=== PATIENT | female | born 1985 | race Caucasian/White ===

== ENCOUNTER 2019-05-11 06:14 | Emergency (ER) | payer OTHER, SELFPAY ==
[2019-05-11 06:20] VITALS: BP 122/88; PULSE 77; RESP 18; TEMP 36.2; O2SAT 98; BMI 29.7
--- NOTE | 2019-05-11 06:30 | EKG12_ITS ---
Test Reason : GENERAL ILLNESS Blood Pressure : / mmHG Vent. Rate : 067 BPM Atrial Rate : 067 BPM P-R Int : 154 ms QRS Dur : 080 ms QT Int : 374 ms P-R-T Axes : 058 043 030 degrees QTc Int : 395 ms Normal sinus rhythm Normal ECG Confirmed by ELMER GALLAGHER, LE ([id number]), school photograph editor VIVIANE HANNON ([id number]) on 05/14/2019 2:24:11 PM Referred By: SHIVANI Confirmed By:YOSELIN PAYNE MD
--- NOTE | 2019-05-11 06:30 | CT_ITS ---
STUDY: CT BRAIN WITHOUT CONTRAST REASON FOR EXAM: Female, 33 years old. WEAKNESS, ''CANT SWALLOW'', DIZZY X 2 WKS RADIATION DOSAGE (If Supplied By Facility): CTDIvol = ( 44.99 ) mGy, DLP = ( 745.49 ) mGycm TECHNIQUE: Transaxial CT imaging of the brain was performed without administration of intravenous contrast material. Individualized dose optimization techniques were used for this CT. COMPARISON: No relevant priors. FINDINGS: Normal soft tissue structures. Normal calvarium. Normal size ventricles and extra-axial spaces for the patient''s age. Normal white matter tracts of the cerebral hemispheres. Normal basal ganglia and thalami. Normal brainstem. Normal cerebellum. There is no intracranial hemorrhage. There are no findings of an acute ischemic infarction. Normal visualized paranasal sinuses. CT/Brain/Head without Contrast IMPRESSION: Normal unenhanced CT scan of the brain. Electronically Signed: Janet Moncada, at 7:18 EDT Tel , Service support ,
[2019-05-11 06:38] LABS: Absolute Neutrophil Count 6.5 X10^3/uL (2.0-7.7); Basophil# 0.08 X10^3/uL; Basophil% 0.8 % (0-1); Eosinophil# 0.15 X10^3/uL; Eosinophils% 1.5 % (0-5); Hematocrit 40.6 % (37-47); Hemoglobin 13.8 g/dL (12.0-15.0); Lymphocyte % 22.4 % (19-41); Mean Corpuscular Hgb 29.4 pg (27.0-32.0); Mean Corpuscular Volume 86.4 fL (81-99); Mean Platelet Vol. 8.5 fl (6.2-12.0); Monocyte# 0.85 X10^3/uL; Monocyte% 8.7 % (0-10); NRBC Flagged by Analyzer 0 % (0-5); Neutrophil # 6.51 X10^3/uL (2.7-7.7); Neutrophil % 66.4 % (47-70); Platelet Count 273 K/mm3 (150-450); RBC Distribution Width CV 12.3 % (11.6-14.6); RBC Distribution Width SD 38.8 fl (35.1-43.9); White Blood Count 9.8 K/mm3 (4.4-11.0)
[2019-05-11] MEDS: 0.9% Normal Saline 1,000 ML 1000 ML IV (06:40)
--- NOTE | 2019-05-11 06:41 | ED.VIS.GEN ---
History of Present Illness Chief Complaint: General Illness Informant: Patient Onset: Weeks Context: Gradual Onset Timing: Intermittent Current Severity: Moderate Maximum Severity: Moderate Narrative: The patient is a 33-year-old female with history of GERD that presents to the emergency department with multiple complaints. The patient states that for the past month, she has had intermittent symptoms of near syncope, shortness of breath, and generalized fatigue. She states that she is also had diminished appetite and feels like her food is getting stuck. She states it only feels like it is getting stuck on the right side of her throat. She states for the past few days, she is felt like the left side of her body has been lazy. She has had intermittent headaches and lack of appetite. She states that she has had treatment for H. pylori in the past. She has seen her primary care and urgent care for the same. She states that she is scheduled for outpatient endoscopy, but the symptoms have not improved so she felt she needed to be evaluated. She denies any fevers, night sweats, or weight loss. She denies any family history of MS. She denies any trauma or visual change. Prior similar symptoms: Yes Recent Illness/Hospitalization: No Past Medical History - Allergies and Home Meds Allergies/Adverse Reactions: Allergies No Known Allergies Allergy (Verified 05/11/19 06:16) Primary Care Physician: Deven Echeverria [Primary Care Provider] - Prior records reviewed: Yes Past Medical History: - - GERD Surgical History: noncontributory Smoking Status: Never smoker Review of Systems General: Reports: Malaise. Denies: Chills, Fever, Sweats Eyes: Denies: Visual changes - bilaterally, Diplopia ENT: Denies: Rhinorrhea, Sore throat Cardiovascular: Denies: Chest pain, Palpitations Respiratory: Reports: Dyspnea. Denies: Cough, Dyspnea on exertion Gastrointestinal: Reports: Nausea. Denies: Abdominal pain, Vomiting, Diarrhea, Melena, Hematochezia Genitourinary: Denies: Dysuria, Hematuria, Frequency Musculoskeletal: Denies: Back pain, Extremity Pain Skin: Denies: Rash, Wounds Neurological: Reports: Parasthesia, Numbness. Denies: Headache, Weakness Physical Exam Vital Signs/Narrative: Vital Signs Temp Pulse Resp BP Pulse Ox 05/11/19 06:20 97.2 F L 77 18 122/88 H 98 Inital Vital Signs reviewed: Yes General: Well nourished, Well developed, No Acute Distress Head: Normocephalic, Atraumatic Eyes: Perrl, EOMI ENT: Moist mucous membranes, No rhinorrhea Neck: Supple, Nontender Cardiovascular: Regular rate, Regular rhythm, No murmurs Respiratory: No distress, CTA bilaterally, Chest nontender Abdomen: Soft, Nontender, Nondistended, Normal bowel sounds Back: Nontender, Normal Inspection Extremities: Nontender, No edema Skin: Normal color, No rash Neurological: Alert, Oriented x3, Cranial nerves II-XII grossly intact, Normal Strength, Normal Sensation Psychological: Normal affect, Normal Mood Diagnostic/Tx/Re-eval - Medical Decision Making The patient is well-appearing and has a nonfocal neurologic examination. Her NIH is 0. Her oropharynx is widely patent. She has had a longer chronicity to her symptoms. She is not hypotensive or tachycardic. The patient will undergo metabolic work-up including head CT. I do have less of a suspicion for dangerous process given the chronicity, but I do feel that certain things need to be ruled out. The patient will be signed out to oncoming physician for final disposition. Impression 1. Generalized weakness ED Disposition - Plan for ED Patient: Referrals: Deven Echeverria [Primary Care Provider] -
[2019-05-11 07:01] LABS: Mucous, Urine 0 SEEN /hpf (<or=2+)
--- NOTE | 2019-05-11 07:01 | ED.RN ---
NO OLD EKG
[2019-05-11 07:03] LABS: Color, Urine Yellow (Yellow); Glucose, Dipstick Normal (Normal); Ketone-Dipstick Negative (Negative); Leukocyte Esterase-Dipstick 25 /ul (Negative); Nitrite-Dipstick Negative (Negative); Occult Blood-Urine 25 /ul (Negative); Protein-Dipstick 30 mg/dl (Negative); Specific Gravity, Urine 1.025 (1.002-1.030); Urine Bilirubin Dipstick Negative (Negative); Urine Clarity Sl. Cloudy (Clear); Urine Urobilinogen Normal (Normal)
[2019-05-11 07:04] LABS: ALB/GLOB Ratio 1.2 RATIO (0.9-2.4); AST(SGOT) 14 U/L (15-37); Alanine Aminotransfer ALT/SGPT 21 U/L (13-56); Albumin, Serum 3.9 g/dL (3.2-5.0); Alkaline Phosphatase 49 U/L (45-117); Anion Gap 7 (5-15); BUN 8 mg/dL (7-18); BUN/Creat Ratio 9.8 RATIO (10-20); Calcium,Total 8.8 mg/dL (8.5-10.1); Chloride 105 mmol/L (98-107); Creatinine, Serum 0.81 mg/dL (0.55-1.02); EST Glomerular Filtration Rate 85 mL/min (>60); Est Glom Filt Rate - Afr Amer 103 mL/min (>60); Estimated Creatinine Clearance 76.67 ml/min; Globulin 3.2 g/dL (2.2-4.2); Glucose 101 mg/dL (74-106); Potassium 3.8 mmol/L (3.5-5.1); Protein, Total 7.1 g/dL (6.4-8.2); Sodium Level 139 mmol/L (136-145)
[2019-05-11 07:05] LABS: Internal QC Validated? YES +Cl - CLEAR BKGD; Pregnancy, Urine Negative Negative
[2019-05-11 07:12] LABS: Bacteria 1+ /hpf (None Seen); Red Blood Cells-Urine 0-5 SEEN /hpf (0-5); Squamous Epithelial Cells - UA 0-5 SEEN /hpf (5-10); White Blood Cells 0-5 SEEN /hpf (0-5)
[2019-05-11 07:56] VITALS: BP 114/77; PULSE 69; RESP 14; O2SAT 99
== END 2019-05-11 07:57 | disposition home or self-care (01) ==
PROVIDERS: Emergency Provider Emergency Medicine
DX: R53.1 Weakness (principal); K21.9 Gastro-esophageal reflux disease without esophagitis; R51 Headache; R11.0 Nausea
CPT/HCPCS: 70450; 80053; 81001; 81025; 83735; 84443; 85025; 93005; 96360; 99283; J7030; A4216

== ENCOUNTER → 2019-05-14 09:55 | Outpatient (CLI) | payer OTHER, SELFPAY ==
[2013-06-25 10:56] VITALS: BMI 29.6
--- NOTE | 2019-05-14 10:00 | RAD_ITS ---
STUDY: X-RAY - ESOPHAGUS (BARIUM SWALLOW) WITH FLUOROSCOPY REASON FOR EXAM: Female, 33 years old. DYSPHAGIA WITH FOOD X 2WEEKS, SOME REFLUX TECHNIQUE: 17 view(s) of the esophagus were obtained following swallowing of barium. FLUOROSCOPY TIME (if supplied): (0:25) minutes/seconds COMPARISON: None. FINDINGS: There is no demonstrated esophageal foreign body. There is no demonstrated stricture or mucosal abnormality. Normal gastroesophageal junction, without a demonstrated hiatal hernia. Normal visualized aortic arch and descending thoracic aorta. Normal visualized pulmonary parenchyma. Normal visualized osseous structures of the thorax. RAD/Esophagus Single Contrast IMPRESSION: Normal plain film x-ray examination (barium swallow) of the esophagus. Electronically Signed: James Moran, at 10:51 EDT , Service support ,
== END ==
PROVIDERS: PCP Family Medicine; Referring Provider Nurse Practitioner Family; Visit Provider Nurse Practitioner Family
DX: R13.12 Dysphagia, oropharyngeal phase (principal)
CPT/HCPCS: 74220

== ENCOUNTER → 2019-07-05 15:22 | Outpatient (CLI) | payer OTHER, SELFPAY ==
--- NOTE | 2019-07-05 15:29 | MRI_ITS ---
STUDY: MRI CERVICAL SPINE WITH AND WITHOUT CONTRAST REASON FOR EXAM: Female, 33 years old. 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 COMPARISON: None FINDINGS: Normal foramen magnum and brainstem-cervical cord junction. Normal cervical lordosis. Normal vertebral bodies and posterior osseous elements. C2-3: Normal endplates. Normal disc height, signal and morphology. Normal central canal and intervertebral neural foramina. C3-4: Normal endplates. Normal disc height, signal and morphology. Normal central canal and intervertebral neural foramina. C4-5: Normal endplates. Normal disc height, signal and morphology. Normal central canal and intervertebral neural foramina. C5-6: Normal endplates. Normal disc height, signal and morphology. Normal central canal and intervertebral neural foramina. C6-7: There is mild disc space narrowing and endplate spondylosis. There is no significant disc herniation, central canal or foraminal stenosis. C7-T1: Normal endplates. Normal disc height, signal and morphology. Normal central canal and intervertebral neural foramina. Normal cervical cord. Normal visualized soft tissue structures. MRI/Spine Cervical W/WO Contrast IMPRESSION: No evidence of demyelinating disease Electronically Signed: Luisito Lopes MD at 15:22 EDT Tel , Service support ,
== END ==
PROVIDERS: PCP Family Medicine; Referring Provider Psychiatry & Neurology Neurology; Visit Provider Psychiatry & Neurology Neurology
DX: G37.9 Demyelinating disease of central nervous system, unspecified (principal)
CPT/HCPCS: 72156; A9575

== ENCOUNTER 2020-08-02 12:14 | Emergency (ER) | payer OTHER, SELFPAY ==
[2020-08-02 12:15] VITALS: BP 114/69; PULSE 81; RESP 18; TEMP 36.8; O2SAT 100; BMI 29.2
--- NOTE | 2020-08-02 12:40 | EKG12_ITS ---
Test Reason : CP Blood Pressure : / mmHG Vent. Rate : 073 BPM Atrial Rate : 073 BPM P-R Int : 154 ms QRS Dur : 082 ms QT Int : 374 ms P-R-T Axes : 052 035 030 degrees QTc Int : 412 ms Normal sinus rhythm with sinus arrhythmia Normal ECG Confirmed by ARTHUR GALLAGHER, COLTON ([id number]), fan mail editor LEN KELLEY ([id number]) on 08/04/2020 9:02:16 AM Referred By: Confirmed By:COLTON GIBSON MD
--- NOTE | 2020-08-02 12:43 | ED.VIS.CHEST ---
HPI History of Present Illness Chief Complaint: Chest Pain Detail of Chief Complaint: Chest pain that started yesterday Informant: patient Onset/Context/Timing Current Severity: 0/10 Narrative Narrative: Patient presents to the emergency department with complaint of chest discomfort. Patient states that last week she had an episode where on her watch it was noted that her heart rate was in the 150s and at times going up to 210. Patient was asymptomatic when the heart rate was 210. She saw a primary care physician that did an EKG and some blood work and was told that the watch may be wrong. Patient does have history of resting tachycardia and has seen cardiology for this in the past. Patient states that she has had 3 echocardiograms and has worn Holter monitors. Patient has not had an etiology found for her tachycardia. 2 days ago she was started on metoprolol and then yesterday started having chest pressure and heaviness that lasted about an hour and a half and then resolved. Patient then started having more chest pressure last evening and had a hard time sleeping last night. Patient currently denies any chest discomfort. Patient states she has been under a lot more stress and recently returned from [place] where she visited her mother in the ICU who then ended up ultimately dying. No history of anxiety or panic attacks. Prior Similar Symptoms: No PFSH PFSH Medical History (Updated 08/02/20 @ 14:[address] Lluvia Mcintyre, ) Tachycardia Home Medications dextroamphetamine-amphetamine 15 mg PO DAILY 08/02/20 [History Last Taken Unknown] metoprolol tartrate 12.5 mg PO DAILY 08/02/20 [History Last Taken Unknown] Allergy/AdvReac Type Severity Reaction Status Date / Time No Known Allergies Allergy Verified 08/02/20 12:17 Surgical History (Updated 08/02/20 @ 13:04 by Noe Ayoub) History of emergency section Social History (System 05/14/19 @ 12:11 by Germaine Kennedy) Smoking Status: Never smoker ROS ROS ED Review of Systems ROS Unobtainable: other Constitutional Constitutional ED: Reports lethargy; Denies chills, fever(s), sweats or weight loss Eyes Eyes: Denies blurry vision, change in vision or diplopia ENT ENT ED: Denies rhinorrhea or sore throat Cardiovascular Cardiovascular: Reports chest pain, palpitations and racing heartbeat; Denies orthopnea Respiratory/Chest Respiratory/Chest: Reports dyspnea and dyspnea on exertion; Denies cough, orthopnea or sputum Gastrointestinal Gastrointestinal: Denies abdominal pain, diarrhea, nausea or vomiting Genitourinary Genitourinary ED: Denies dysuria, hematuria or urinary frequency Musculoskeletal Musculoskeletal: Denies arthralgias, back pain, myalgias or neck pain Integumentary Denies abscess, Abrasions or rash Neurologic Neurologic: Denies headache(s) or weakness Psychiatric Psychiatric: Denies anxiety, depression or suicidal thoughts Endocrine Endocrinology: Denies polydipsia, polyphagia or polyuria Hematologic/Lymphatic Hematologic/Lymphatic: Denies easy bleeding, easy bruising or lymphadenopathy Allergic/Immunologic Allergic/Immunologic ED: Denies mouth swelling, tongue swelling or urticaria EXAM Physical Exam Const Vital Signs: 08/02/20 12:15 08/02/20 12:49 08/02/20 13:06 Temperature 98.2 F Temperature Source Temporal Pulse Rate 81 Respiratory Rate 18 Respiratory Effort Normal Non-Labored Respiratory Pattern Normal Blood Pressure 114/69 Blood Pressure Mean 84 Pulse Ox 100 Oxygen Delivery Method Room Air Room Air Positive well nourished and well developed General Appearance ED: well developed and NAD HEENT Reports TM's clear and moist mucous membranes normocephalic and atraumatic; Negative for trauma or tenderness Tympanic Membrane ED: Yes TM's clear Eyes PERRL and EOMs intact bilaterally General Eye ED: Negative for pale conjunctiva or scleral icterus Neck no lymphadenopathy, supple and no JVD General: Negative for tenderness Chest Wall inspection of chest normal and palpation of chest normal Chest: Negative for tenderness Resp normal respiratory effort and clear to auscultation bilaterally Effort and Inspection: Negative for respiratory distress or pain with movement Auscultation: Negative for rhonchi, wheezes or diminished lung sounds Cardio regular rate, regular rhythm, S1 normal heart sound, S2 normal heart sound and no murmurs Peripheral Pulses: pulses 2+ throughout GI normal to inspection, nondistended, normoactive bowel sounds, soft to palpation, non-tender, non-distended and no masses Back/Spine no CVA tenderness and no thoracic nor lumbar tenderness Extremity normal to inspection General Extremety ED: Negative for edema General Extremity: Negative for edema Neuro oriented x3, CN's II-XII intact bilaterally, no sensory deficits noted and gait normal Sensorium / Orientation: awake, alert, oriented to person, oriented to place and oriented to time Motor Exam: strength 5/5 throughout and strength abnormal Psych mental status grossly normal Skin no rashes or lesions noted and no wounds MDM MDM MDM Narrative Medical decision making narrative: Patient work-up unremarkable in the emergency department. I will have them place a Holter monitor on patient for 48 hours. I will refer to cardiology for follow-up. This point etiology of her tachycardia and her chest pain is unclear. I do not feel she is having acute coronary syndrome. We discussed aortic dissection because she brought it up and she has been having back pain for over a year for which she had an MRI and coupled with her chest pain today she was concerned about that. There is no evidence of wide mediastinum on x-ray and clinically I do not feel patient has a dissection. Patient does not have family history of Marfan's or connective tissue disorder. I did offer potentially obtaining a CTA of the chest to rule this out and she is comfortable at this point not proceeding with a CTA. I am comfortable that patient does not have a dissection clinically. Lab Data Attestation: I reviewed the patient's lab results. Labs: Laboratory Results - last 24 hr 08/02/20 08/02/20 08/02/20 12:30 12:30 12:30 WBC 8.7 RBC 4.75 Hgb 14.0 Hct 41.1 MCV 86.5 MCH 29.5 MCHC 34.1 RDW Std Deviation 38.5 RDW Coeff of Britta 12.3 Plt Count 293 MPV 8.4 Immature Gran % (Auto) 0.500 Neut % (Auto) 72.7 H Lymph % (Auto) 15.8 L [place] % (Auto) 8.7 Eos % (Auto) 1.5 Baso % (Auto) 0.8 Absolute Neuts (auto) 6.3 Absolute Lymphs (auto) 1.38 Nucleated RBC % 0 D-Dimer Quant (PE/DVT) <= 0.27 Sodium 138 Potassium 3.8 Chloride 106 Carbon Dioxide 25.0 Anion Gap 7 BUN 13 Creatinine 0.85 Estim Creat Clear Calc 72.37 Est GFR (MDRD) Af Amer 97 Est GFR (MDRD) Non-Af 80 BUN/Creatinine Ratio 15.3 Glucose 134 H Calcium 9.5 Troponin I High Sens < 3.0 L B-Natriuretic Peptide 08/02/20 12:30 WBC RBC Hgb Hct MCV MCH MCHC RDW Std Deviation RDW Coeff of Britta Plt Count MPV Immature Gran % (Auto) Neut % (Auto) Lymph % (Auto) [place] % (Auto) Eos % (Auto) Baso % (Auto) Absolute Neuts (auto) Absolute Lymphs (auto) Nucleated RBC % D-Dimer Quant (PE/DVT) Sodium Potassium Chloride Carbon Dioxide Anion Gap BUN Creatinine Estim Creat Clear Calc Est GFR (MDRD) Af Amer Est GFR (MDRD) Non-Af BUN/Creatinine Ratio Glucose Calcium Troponin I High Sens B-Natriuretic Peptide 15.0 Radiography Chest X-Ray - ED: 1 View Diagnostic Testing: Radiology Impression Chest X-Ray 08/02/20 13:00 Chest x-ray 1 view obtained showed nothing acute as interpreted by myself. Radiology in agreement. EKG Initial EKG: Attestation: I personally reviewed and interpreted this EKG as follows: Comments: Sinus rhythm with a ventricular rate of 73 bpm with occasional PACs. Discharge Plan Triage Chief Complaint: Chest Pain ED Provider: Lluvia Mcintyre Dx/Rx/DC Orders Clinical Impression: Tachycardia, Chest pain Instructions: ED Chest Pain, Uncertain Cause Prescriptions: No Action dextroamphetamine-amphetamine 15 mg capsule,extended release 24hr 15 mg PO DAILY RF: 0 metoprolol tartrate 25 mg Tablet 12.5 mg PO DAILY RF: 0 Primary Care Provider: Deven Echeverria Referrals: Abdelrahman Moss MD [STAFF PHYSICIAN] - 3-5 Days Deven Echeverria MD [Primary Care Provider] - Disposition Disposition: Home, Self Care
[2020-08-02] MEDS: Aspirin 81 MG TAB.CHEW 324 MG PO (12:48)
[2020-08-02 12:56] LABS: Absolute Lymphocyte Count 1.38 X10^3/uL (0.83-4.51); Absolute Neutrophil Count 6.3 X10^3/uL (2.0-7.7); Basophil# 0.07 X10^3/uL; Basophil% 0.8 % (0-1); Eosinophil# 0.13 X10^3/uL; Eosinophils% 1.5 % (0-5); Hematocrit 41.1 % (37-47); Lymphocyte # 1.38 X10^3/ul (0.83-4.51); Lymphocyte % 15.8 % (19-41); Mean Corp Hgb Conc 34.1 g/dL (32-36); Mean Corpuscular Hgb 29.5 pg (27.0-32.0); Mean Corpuscular Volume 86.5 fL (81-99); Mean Platelet Vol. 8.4 fl (6.2-12.0); Monocyte# 0.76 X10^3/uL; Monocyte% 8.7 % (0-10); NRBC Flagged by Analyzer 0 % (0-5); Neutrophil # 6.33 X10^3/uL (2.7-7.7); Neutrophil % 72.7 % (47-70); Platelet Count 293 K/mm3 (150-450); RBC Distribution Width CV 12.3 % (11.6-14.6); RBC Distribution Width SD 38.5 fl (35.1-43.9); Red Blood Count 4.75 M/mm3 (4.2-5.4); White Blood Count 8.7 K/mm3 (4.4-11.0)
--- NOTE | 2020-08-02 13:00 | RAD_ITS ---
STUDY: X-RAY CHEST REASON FOR EXAM: Female, 34 years old. chest pain TECHNIQUE: Single view of the chest was obtained COMPARISON: None. FINDINGS: No consolidative process, pleural effusion or pneumothorax. Cardiac size within normal limits. Osseous structures demonstrate no acute abnormalities IMPRESSION: No acute cardiopulmonary pathology Electronically Signed: Fritz Patel MD at 13:29 EDT Tel , Service support , RAD/Chest 1 View (Portable)
[2020-08-02 13:11] LABS: Anion Gap 7 (5-15); BUN 13 mg/dL (7-18); BUN/Creat Ratio 15.3 RATIO (10-20); Calcium,Total 9.5 mg/dL (8.5-10.1); Chloride 106 mmol/L (98-107); Creatinine, Serum 0.85 mg/dL (0.55-1.02); EST Glomerular Filtration Rate 80 mL/min (>60); Est Glom Filt Rate - Afr Amer 97 mL/min (>60); Estimated Creatinine Clearance 72.37 ml/min; Glucose 134 mg/dL (74-106); Potassium 3.8 mmol/L (3.5-5.1); Sodium Level 138 mmol/L (136-145); Troponin-I HS < 3.0 pg/mL (3.0-53.7)
[2020-08-02 13:18] LABS: D-Dimer Quantitative (DVT/PE) <= 0.27 FEU/ug/m (0.27-0.49)
[2020-08-02 15:33] VITALS: BP 113/76; PULSE 82; PULSE 88; RESP 16; RESP 17
== END 2020-08-02 15:34 | disposition home or self-care (01) ==
PROVIDERS: Emergency Provider Emergency Medicine; PCP Family Medicine
DX: R07.9 Chest pain, unspecified (principal); R00.0 Tachycardia, unspecified
CPT/HCPCS: 71045; 80048; 83880; 84484; 85025; 85379; 93005; 93225; 99285; A4216

== ENCOUNTER → 2020-08-02 15:10 | Outpatient (CLI) | payer OTHER, SELFPAY ==
[2020-08-02 12:15] VITALS: BMI 29.2
== END ==
PROVIDERS: PCP Family Medicine; Visit Provider Internal Medicine Cardiovascular Disease
DX: Z00.00 Encounter for general adult medical examination without abnormal findings (principal)
CPT/HCPCS: 93225; 93226